=== PATIENT | female | born 1955 | race Caucasian/White ===

== ENCOUNTER → 2016-07-21 | Outpatient (CLI) | payer OTHER ==
[2013-12-04 11:35] VITALS: BP 132/72
[~2016-07-21] MED LIST: FLUT16SP2 NS; LOSA50TA2 PO; MULT-18 PO; NAPR250T2 PO; THYR60TA PO; TRIA1TAB3 PO
--- NOTE | 2016-07-21 11:10 | KCIC ---
PROCEDURE Two-view chest dated 07/21/2016. HISTORY Followup abnormal chest x-ray. TECHNIQUE PA and lateral views obtained. COMPARISON 04/02/[address] dated 04/16/2016. FINDINGS The heart and mediastinal contours are stable. Patchy areas of increased density in the right middle lobe are similar to slightly increased from prior study. There is also mild patchy increased density at the right lower lobe. Right upper lobe opacities have somewhat improved from the prior chest CT. No left-sided infiltrate or pleural effusion. No pneumothorax. IMPRESSION Increasing patchy right middle lobe opacity, chronic versus recurrent bronchopneumonia. Short term follow up imaging is recommended to ensure stability/resolution. Electronically signed by: Wan Umanzor (Jul 21, 2016 11:09:18)
== END | disposition home or self-care (01) ==
LOC: KCIC 10:35
PROVIDERS: ATTEND Internal Medicine Pulmonary Disease
DX: R91.8 Other nonspecific abnormal finding of lung field (principal)
CPT/HCPCS: 71020

== ENCOUNTER → 2016-08-27 | Day surgery (SDC) | payer OTHER ==
[~2016-08-27] MED LIST changes: +ALBUTEROL SULFATE 2.5 MG/3 ML NEBU. NEB ONE; +ALBUTEROL SULFATE 2.5 MG/3 ML NEBU. ONE; +FENTANYL PF 100 MCG/2 ML VIAL. IV PRN; +HYDROMORPHONE 2 MG/ML VIAL. IV PRN; +IV RINGERS,LACTATED 1000ML 1,000 ML IV SCH; +LIDOCAINE 1% 1 ML SYRINGE. ID PRN; +LIDOCAINE 2% PF Vial for OR 5 ML VIAL. ONE; +MORPHINE SULFATE 2 MG/ML DISP.SYRIN. IV PRN; +ONDANSETRON PF 4 MG/2 ML VIAL. IV PRN; +PROCHLORPERAZINE 10 MG/2 ML VIAL. IV PRN; +PROPOFOL 20 ML IV ONE
[2016-08-27 12:10] VITALS: BP 135/51
--- NOTE | 2016-08-27 12:23 | OP ---
DATE OF SURGERY: BRONCHOSCOPY NOTE ATTENDING PHYSICIAN: Dr. Griffin. INDICATION: Persistent and progressive infiltrates. DESCRIPTION OF PROCEDURE: Informed consent was obtained from the patient. All risks and benefits were explained. She agreed to proceed with the procedure. Propofol was used by anesthesia for sedation. Bronch was introduced through the oral airway. The upper area was passed. Vocal cords moves equally with respiration. The trachea was entered. No tracheal lesions seen. Johanna was sharp. Right lung was examined. No endobronchial lesions seen in the right upper lobe, right middle or right lower lobe. Bronchoalveolar lavage performed from the posterior subsegment of right upper lobe and also from the lateral subsegment of the right middle lobe. No purulent secretions seen in the right lower lobe. Bronch was introduced into the left lung. No endobronchial lesions seen. All subsegments of the left upper lobe, lingula and left lower lobe were examined. No significant purulent secretions seen. No bronchoalveolar lavage performed from the left lung. The patient tolerated the procedure well. IMPRESSION: 1. No purulent secretions seen in the right or the left lung. All subsegments were examined. 2. Opening to the right middle lobe was slightly narrow, but no endobronchial lesions seen in the subsegments. Bronchoalveolar lavage performed from right middle lobe and right upper lobe. 3. Follow the culture results and the patient will follow with Dr. Griffin in the office. LO RAMÍREZ MD DR: ALISON/anoop JOB#: [id number] / [id number] DEXTER
--- NOTE | 2016-09-01 16:34 | PATHOLOGY ---
CYTOPATHOLOGY REPORT CLINICAL HISTORY: RML, RUL Infiltrate. SPECIMEN(S) RECEIVED: A.Bronchoalveolar lavage, RUL B.Bronchoalveolar lavage, RML FINAL DIAGNOSIS: A. Right upper lobe bronchoalveolar lavage, ThinPrep and silver stain: - No malignant cells identified. - Focally reactive bronchial epithelial cells, few squamous epithelial cells, and pulmonary macrophages identified within a background of scattered inflammatory cells. - Insufficient specimen available for silver stain. B. Right middle lobe bronchoalveolar lavage, ThinPrep and silver stain: - No malignant cells identified. - Focally reactive bronchial epithelial cells, few squamous epithelial cells, and a few pulmonary macrophages identified within a background of acute inflammatory cells. - Limited specimen available for silver stain is negative for yeast/fungal organisms and Pneumocystis organisms. (JPM:; d/t: 09/01/16) PATHOLOGIST: Peterson Romero M.D. REPORT ELECTRONICALLY SIGNED BY: Peterson Romero M.D. DATE/TIME: 09/01/2016 16:33 GROSS PATHOLOGY: A. Bronchoalveolar lavage, RUL: The specimen is submitted unfixed, labeled "Omari Stern". Received by the Cytology Department is one mL of clear colorless fluid. One ThinPrep slide was prepared for pap stain. One ThinPrep slide was prepared for silver stain. B. Bronchoalveolar lavage, RML: The specimen is submitted unfixed, labeled "Omari Stern". Received by the Cytology Department is one mL of clear colorless fluid. One ThinPrep slide was prepared for pap stain. One ThinPrep slide was prepared for silver stain. (clt 08.27.2016) FINANCIAL MANAGEMENT(S): TALIA Harris(ASCP) INITIAL CPT CODE(S): A; 78042, 44924 B; 29170, 14474 Professional services performed by [facility] at [address] [address] Technical services performed by [facility] at [address] [place] [address], [address] [address]. PATIENT: OMARI STERN /AGE: 701/24/1955 (Age: 61) SEX: F PATIENT #: [id number] ALT CASE #: SPECIMEN COLLECTION DATE: 08/27/2016 SPECIMEN RECEIVED DATE: 08/27/2016 [facility] [address] [facility], [address] [place] [address] PHONE: [phone] DIRECTOR: Christos Grubbs M.D. * * * END OF REPORT * * *
--- NOTE | 2016-09-08 13:00 | HP ---
ADMIT DATE: 08/27/2016 HISTORY OF PRESENT ILLNESS: The patient is a 61-year-old female, who is a patient of my partner, Dr. Griffin and was seen by him in the office for a right middle lobe infiltrate, which was worsening on chest x-ray. The patient also had been having cough with small amounts of yellow sputum production. A CT of the chest was performed at [facility] which was showing progression of right middle lobe infiltrate .As a results, bronchoscopy was scheduled as an outpatient. PAST MEDICAL HISTORY: Significant for hypertension, hyperlipidemia and thyroid disease. SOCIAL HISTORY: Quit tobacco at age of 51. FAMILY HISTORY: Positive for asthma. REVIEW OF SYSTEMS: As discussed in my history of present illness. PHYSICAL EXAMINATION: VITAL SIGNS: Stable. NECK: Supple. LUNGS: Diminished breath sounds. CARDIOVASCULAR: Regular rate. ABDOMEN: Soft. EXTREMITIES: No pitting edema. IMPRESSION: 1. Progressive right middle lobe infiltrate, would benefit from bronchoscopy. 2. History of asthma. 3. Past tobacco abuse. RECOMMENDATIONS: 1. Discussed with the patient the risks and benefits of bronchoscopy and she agrees to proceed with it. 2. Post-bronchoscopy. The patient to follow with Dr. John Griffin to discuss her results of the bronchoscopy. LO RAMÍREZ MD DR: ALISON/anoop JOB#: [id number] / [id number] DEXTER
== END | disposition home or self-care (01) ==
LOC: SURG 09:58
PROVIDERS: ATTEND Internal Medicine Critical Care Medicine
DX: R91.8 Other nonspecific abnormal finding of lung field (principal); E78.00 Pure hypercholesterolemia, unspecified; I10 Essential (primary) hypertension; E03.9 Hypothyroidism, unspecified; Z87.891 Personal history of nicotine dependence; Z90.710 Acquired absence of both cervix and uterus
CPT/HCPCS: 31624; 87070; 87102; 87116; 87205; 88112; 88312; 94640; J2704; 31622

== ENCOUNTER → 2018-06-06 | Outpatient (CLI) | payer OTHER ==
[2016-08-27 12:10] VITALS: BP 135/51
[~2018-06-06] MED LIST changes: -ALBUTEROL SULFATE 2.5 MG/3 ML NEBU. NEB ONE; -ALBUTEROL SULFATE 2.5 MG/3 ML NEBU. ONE; -FENTANYL PF 100 MCG/2 ML VIAL. IV PRN; -HYDROMORPHONE 2 MG/ML VIAL. IV PRN; -IV RINGERS,LACTATED 1000ML 1,000 ML IV SCH; -LIDOCAINE 1% 1 ML SYRINGE. ID PRN; -LIDOCAINE 2% PF Vial for OR 5 ML VIAL. ONE; +LOSA-73 PO; -LOSA50TA2 PO; -MORPHINE SULFATE 2 MG/ML DISP.SYRIN. IV PRN; -NAPR250T2 PO; +NAPR250T6 PO; -ONDANSETRON PF 4 MG/2 ML VIAL. IV PRN; -PROCHLORPERAZINE 10 MG/2 ML VIAL. IV PRN; -PROPOFOL 20 ML IV ONE
--- NOTE | 2018-06-06 17:06 | RAD ---
Chest, 2 views, 06/06/2018: HISTORY: Cough The heart size is normal. The lungs are clear. There is no evidence of pleural fluid. Minimal spurring is present in the spine. IMPRESSION: No acute cardiopulmonary abnormality is detected. Electronically signed by: Luan Leone MD (06/06/2018 5:02 PM) [facility]
== END | disposition home or self-care (01) ==
LOC: RAD 10:20
PROVIDERS: ATTEND Internal Medicine Pulmonary Disease
DX: M46.04 Spinal enthesopathy, thoracic region (principal); R05 Cough
CPT/HCPCS: 71046